=== PATIENT | female | born 1980 | race Caucasian/White ===

== ENCOUNTER 2016-06-10 12:21 | Emergency (ER) | payer MEDICARE, BC ==
--- NOTE | ~2016-06-10 | ER ---
PATIENT'S NAME: NAILA HIGGINS [facility] AGE: 36 Y [address] ROOM: [place] [address] LOCATION: [facility] ADMIT DATE: 06/10/2016 ER/Outpatient Report DISCHARGE DATE: 06/10/2016 FAMILY PHYSICIAN: Oc Payne MD ATTENDING PHYSICIAN: Everette Crenshaw TIME OF ARRIVAL: 1230 hours. TIME OF EXAM: 1240 hours. CHIEF COMPLAINT: Fall. 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 She is having more pain than what she can tolerate. She does use a fentanyl patch that she is having breakthrough pain. She did go to Dr. Payne office prior to coming to the ER and they encouraged her to come here for further evaluation. She denies having any chest pain, has not had a cough, she states she just has generalized aches everywhere. She has had some nausea, having pain all the way down her back, has had a headache. Denies having fever or chills. ALLERGIES: INCLUDE CODEINE, SULFA, PENICILLIN, CEPHALOSPORINS, AND BIAXIN. CURRENT MEDICATIONS: Current medications are on the chart and reviewed by me. PAST MEDICAL HISTORY: Includes Pike's disease, pseudoseizures, and hypertension. SOCIAL HISTORY: She lives at home with her . Denies use of tobacco, drugs, or alcohol. She sees Dr. Payne for her primary provider. She does see Dr. Remy as muffle worker in [place] for her Darek's disease and then Dr. Wallace is her pain specialist. reports that Dr. Remy is trying to get her Pike's under control before Dr. Wallace would do anymore injections for her pain control. REVIEW OF SYSTEMS: All negative other than those mentioned in the HPI. PATIENT'S NAME: NAILA HIGGINS [facility] AGE: 36 Y [address] ROOM: [place] [address] LOCATION: [facility] ADMIT DATE: 06/10/2016 ER/Outpatient Report DISCHARGE DATE: 06/10/2016 FAMILY PHYSICIAN: Oc Payne MD ATTENDING PHYSICIAN: Everette Crenshaw PHYSICAL EXAMINATION: VITAL SIGNS: Blood pressure is 132/64, pulse is 72, respirations 20, and O2 sat was 99% on room air. GENERAL: She is awake, alert, and oriented x4. SKIN: [place], warm, and dry. RESPIRATIONS: Even and nonlabored. HEENT: The patient's cranial exam was difficult to do as the patient was not real compliant with following instructions. She had difficulty tracking when checking for extraocular movement. She states her head hurts and it is making things worse instead of better. She does have decreased strength throughout. TMs were normal. She does have an abrasion of the inner ear canal. Oropharynx was clear. She states it is painful to open her mouth wide. She does not have a normal smile. She does have a bruise to the left posterior scapular area. She has a lump just superior of the left clavicle area. She states that area she has had for quite sometime. LUNGS: Lung sounds are clear throughout. HEART: Regular rate and rhythm. EXTREMETIES: She came in per wheelchair. She was able to stand and pivot onto the cart. EMERGENCY DEPARTMENT COURSE: Saline lock was initiated. She was given Valium 2 mg IV and fentanyl 25 mg IV. Lab work was drawn. CBC is within normal limits. Chem panel, potassium is 2.9, otherwise it is within normal limits. She did have to urinate and a clean-catch UA was obtained. The micro shows packed field epithelials as a dirty specimen. CT of the head, neck, T-spine, and L-spine were completed. Radiologist reports they were all normal. The patient able to rest during the ER visit. Results of lab and CT were reviewed with her and her . IMPRESSION: Pain due to fall. PLAN: Home, rest, continue her current medications. She needs to follow up with either Dr. Payne or one of her specialist within the next 2 or 3 days. verbalized understanding. ASIM PENDLETON APRN FOR [facility]/[id number] /[id number] d: 06/10/163 t: 06/13/16 1801, OUTPATIENT REPORT
[2016-06-10 13:42] LABS: BASOPHIL % 0.3 %; EOSINOPHIL # 0.1 K/uL (0.0-0.5); EOSINOPHIL % 0.5 %; HEMATOCRIT 36.8 % (33.0-46.0); IMMATURE GRANULOCYTE # 0.1 K/uL (0.0-0.3); IMMATURE GRANULOCYTE % 0.4 %; LYMPHOCYTE # 2.7 K/uL (0.8-4.0); LYMPHOCYTE % 23.9 %; MCH 28.9 pg (27.0-34.0); MCHC 32.6 gm/dL (32.0-36.5); MCV 88.7 fl (83.0-98.0); MONOCYTE # 0.7 K/uL (0.0-1.0); MONOCYTE % 6.6 %; MPV 9.9 fl (9.4-12.4); NEUTROPHIL # (ANC) 7.6 K/uL (1.8-7.8); NEUTROPHIL % 68.3 %; NRBC % 0 /100WBC (0-0.00); PLATELET COUNT 234 K/uL (150-450); RBC 4.15 M/uL (3.50-5.50); RDW-CV 14.8 % (11.9-14.6); WBC 11.1 K/uL (4.0-11.0)
[2016-06-10 14:00] LABS: ALBUMIN 3.4 gm/dL (3.5-5.0); ALK PHOS 88 IU/L (33-138); ALT 35 IU/L (12-78); ANION GAP 11.9 (10.0-19.0); AST 19 IU/L (10-40); BLOOD UREA NITROGEN 13 mg/dL (6-24); CALCIUM 8.3 mg/dL (8.5-10.5); CHLORIDE 107 mMol/L (96-110); CO2 27 mMol/L (22-32); ESTIMATED GFR (MDRD EQUATION) > 60; SODIUM 143 mMol/L (135-145); TOTAL BILIRUBIN 0.4 mg/dL (0.0-1.5); TOTAL PROTEIN 6.5 g/dL (6.0-8.4)
[2016-06-10 14:03] LABS: POTASSIUM 2.9 mMol/L (3.7-5.1)
[2016-06-10 14:18] LABS: BILIRUBIN URINE NEGATIVE (NEGATIVE); BLOOD URINE NEGATIVE /UL (NEGATIVE); COLOR URINE YELLOW (YELLOW); GLUCOSE URINE NEGATIVE (NEGATIVE); KETONE URINE NEGATIVE (NEGATIVE); LEUKOCYTES URINE 100 /UL (NEGATIVE); NITRITE URINE NEGATIVE (NEGATIVE); PROTEIN URINE NEGATIVE (NEGATIVE); SPEC GRAVITY URINE 1.015 (1.003-1.035); UROBILINOGEN URINE 1 mg/dL (NORMAL)
[2016-06-10 14:20] LABS: TURBIDITY URINE 2+ (CLEAR)
[2016-06-10 14:27] LABS: AMORPHOUS URINE 2+ (NEGATIVE); BACTERIA URINE MANY (NEGATIVE); EPITHELIAL URINE PACKED FIELD #/HPF (NEGATIVE); MUCUS URINE 3+ (NEGATIVE); RBC URINE RARE #/HPF (NEGATIVE)
== END 2016-06-10 15:49 | disposition disaster alternative care site (69) ==
LOC: GACC 12:21
PROVIDERS: Emergency Medicine
DX: S00.419A Abrasion of unspecified ear, initial encounter (principal); S40.012A Contusion of left shoulder, initial encounter; I10 Essential (primary) hypertension; Z88.0 Allergy status to penicillin; Z88.2 Allergy status to sulfonamides; Z88.8 Allergy status to other drugs, medicaments and biological substances; Z88.1 Allergy status to other antibiotic agents; W19.XXXA Unspecified fall, initial encounter
CPT/HCPCS: J3010; J3360

== ENCOUNTER → 2016-06-30 | Outpatient (CLI) | payer MEDICARE, BC | END | disposition disaster alternative care site (69) | LOC: GRAD 08:00 | DX: R10.2 Pelvic and perineal pain (principal); S32.501A Unspecified fracture of right pubis, initial encounter for closed fracture; S32.10XA Unspecified fracture of sacrum, initial encounter for closed fracture ==